=== PATIENT | male | born 1980 | race Caucasian/White ===

== ENCOUNTER 2016-10-12 09:46 | Emergency (ER) | payer MEDICAID ==
[~2016-10-12] VITALS: Ht 177.8 cm; Wt 65.0 kg
[2016-10-12 11:09] VITALS: BP 125/77
== END 2016-10-12 11:47 | disposition home or self-care (01) ==
LOC: EMS 09:51
DX: L02.212 Cutaneous abscess of back [any part, except buttock and flank] (principal)
CPT/HCPCS: 99283